=== PATIENT | male | born 2000 | race Caucasian/White ===

== ENCOUNTER 2025-08-11 22:22 | Emergency (ER) | payer OTHER, SELFPAY ==
--- OUTSIDE RECORDS SUMMARY | 2022-09-03 10:00 | XMS_ITS | Continuity of Care Document ---
Author Organization [facility] Address [address] [place] [address] Phone Care Team Providers Care Associate Programmer Name Role Phone Unavailable Unavailable Unavailable Allergies, Adverse Reactions, Alerts Substance Reaction Status Criticality No Known Allergies Active No Inform ation Medications Medication Instructions Dosage Effective Dates (start - stop) Status Comments Adderall XR 10 mg capsule,extended release take 1 capsule by oral route every day in the morning upon awakening as needed for need for attention 10 MG - Active Procedures Procedure Date Depression Negative Screen SBIRT Collect venous blood, venipuncture Aug- Metabolic panel, comprehensive CBC (INCLUDES DIFF/PLT) TSH Urinalysis, non-automated, w/o scope Aug DRUG TEST PRSMV DIR OPT OBS OFFICE O/P NEW, MODERATE LEVEL MDM 45-49 MIN Results Test Name Date and Time Measure Units Reference Range Abnormal Flag Status Comments Panel Description: POC Labs Final Drug Screen 16:01:27 A drug screen was performed today. The patient tested negative for PCP, BUP, METHADONE, MOR, MDMA, EDDP, OLGA LIDIA, THC, BENZO, OXY, AMP, METH AMP, TCA, EMILEE. negative Final Performed by: Rasheed Davies Panel Description: POC Labs Final Urinalysis, Dip Without Micro 16:00:25 Color: light yellow. Glucose: negative. Bilirubin: negative. Ketones: negative. Specific [place]: 1.015. Blood: negative. pH: 7.0. Protein: negative. Urobilinog en: normal. Nitrite: negative. Leukocytes : negative. negative Final Performed by: Rasheed Davies Panel Description: COMPREHENSIVE METABOL IC PANEL PendingIncom plete GLUCOSE 06:31:00 PendingIncompl ete Performed by:[facility] ([place])[address] [place] [address] UREA NITROGEN (BUN) 06:31:00 PendingIncompl ete Performed by:[employer] (UT)[address]128 [place] [address] CREATININE 06:31:00 PendingIncompl ete Performed by:[facility] (UT)59693 [place] [address] EGFR 06:31:00 PendingIncompl ete Performed by:[facility] (UT)30378 [place] [address] BUN/CREATININ E RATIO 06:31:00 PendingIncompl ete Performed by:[facility] (UT)44793 [place] [address] SODIUM 06:31:00 PendingIncompl ete Performed by:[facility] (UT)[address]159 [place] [address] POTASSIUM 06:31:00 PendingIncompl ete Performed by:[facility] (UT)41655 [place] [address] CHLORIDE 06:31:00 PendingIncompl ete Performed by:[employer] (UT)[address]10 [place] [address] CARBON DIOXIDE 06:31:00 PendingIncompl ete Performed by:[facility] (UT)[address]113 [place] [address] CALCIUM 06:31:00 PendingIncompl ete Performed by:[facility] (UT)78403 [place] [address] PROTEIN, TOTAL 06:31:00 PendingIncompl ete Performed by:[facility] (UT)[address]14 [place] [address] ALBUMIN 06:31:00 PendingIncompl ete Performed by:[facility] (UT)29640 [place] [address] GLOBULIN 06:31:00 PendingIncompl ete Performed by:[facility] (UT)36608 [place] [address] ALBUMIN/GLOBU BALJEET RATIO 06:31:00 PendingIncompl ete Performed by:[facility] (UT)[address]84 [place] [address] BILIRUBIN, TOTAL 06:31:00 PendingIncompl ete Performed by:[facility] (UT)48541 [place] [address] ALKALINE PHOSPHATASE 06:31:00 PendingIncompl ete Performed by:[facility] (UT)[address]14 [place] [address] AST 06:31:00 PendingIncompl ete Performed by:[facility] (UT)03787 [place] [address] ALT 06:31:00 PendingIncompl ete Performed by:[facility] (UT)[address]72 [place] [address] Panel Description: COMPREHENSIVE METABOLIC PANEL Final GLUCOSE 09:42:00 81 mg/dL 65-99 N Final Fasting reference interval Performed by:[employer] (UT)[address]32 [place] [address] UREA NITROGEN (BUN) 09:42:00 17 mg/dL 7-25 N Final Performed by:[facility] (UT)83980 [place] [address] CREATININE 09:42:00 1.38 mg/dL 0.60-1.24 H Final Performed by:[facility] (UT) [place] [address] EGFR 09:42:00 73 mL/min /1.73m 2 > OR = 60 N Final The eGFR is based on the CKD-EPI 2020 equation. To calculate the new eGFR from a previous Creatinine or Cystatin Cresult, go to https://www .kidney.org /profession als/kdoqi/g fr%5Fcalcul atorPerform ed by:[facility] (UT)[address]459 [place] [address] BUN/CREATININ E RATIO 09:42:00 12 (calc) 6-22 N Final Performed by:[facility] (UT)43433 [place] [address] SODIUM 09:42:00 139 mmol/L 135-146 N Final Performed by:Spock[facility] (UT)32811 [place] [address] POTASSIUM 09:42:00 4.5 mmol/L 3.5-5.3 N Final Performed by:[facility] (UT)94974 [place] [address] CHLORIDE 09:42:00 103 mmol/L 98-110 N Final Performed by:[facility] (UT)27131 [place] [address] CARBON DIOXIDE 09:42:00 28 mmol/L 18-30 N Final Performed by:Sp[facility] (UT)69427 [place] [address] CALCIUM 09:42:00 9.7 mg/dL 8.6-10.3 N Final Performed by:[facility] (UT)[address] [place] [address] PROTEIN, TOTAL 09:42:00 7.2 g/dL 6.1-8.1 N Final Performed by:[employer] (UT)[address] [place] [address] ALBUMIN 09:42:00 4.7 g/dL 3.6-5.1 N Final Performed by:[employer] [facility] (UT)[address] [place] [address] GLOBULIN 09:42:00 2.5 g/dL (calc) 1.9-3.7 N Final Performed by:[employer] [facility] (UT)[address] [place] [address] ALBUMIN/GLOBU BALJEET RATIO 09:42:00 1.9 (calc) 1.0-2.5 N Final Performed by:[employer] [employer] (UT)[address] [place] [address] BILIRUBIN, TOTAL 09:42:00 1.8 mg/dL 0.2-1.2 H Final Performed by:[employer] [facility] (UT)[address] [place] [address] ALKALINE PHOSPHATASE 09:42:00 65 U/L 36-130 N Final Performed by:[facility] (UT)[address] [place] [address] AST 09:42:00 17 U/L 10-40 N Final Performed by:[facility] (UT)[address] [place] [address] ALT 09:42:00 13 U/L 9-46 N Final Performed by:[employer] [facility] (UT)[address] [place] [address] Panel Description: COMPREHENSIVE METABOLIC PANEL Final GLUCOSE 12:59:00 81 mg/dL 65-99 N Final Fasting reference interval Performed by:[facility] (UT)28815 [place] [address] UREA NITROGEN (BUN) 12:59:00 17 mg/dL 7-25 N Final Performed by:[employer] [employer] [place] (UT)[address] [place], [place] [address] [address] CREATININE 12:59:00 1.38 mg/dL 0.60-1.24 H Final Performed by:Spock[facility] (UT)[address] [place], [place] [address] [address] EGFR 12:59:00 73 mL/min /1.73m 2 > OR = 60 N Final The eGFR is based on the CKD-EPI 2020 equation. To calculate the new eGFR from a previous Creatinine or Cystatin Cresult, go to https://www .kidney.org /profession als/kdoqi/g fr%5Fcalcul atorPerform ed by:[facility] (UT)59625[facility] [place] [address] BUN/CREATININ E RATIO 12:59:00 12 (calc) 6-22 N Final Performed by:Spock[facility] (UT) [place] [address] SODIUM 12:59:00 139 mmol/L 135-146 N Final Performed by:SpockAnthony (UT)44640 [place] [address] POTASSIUM 12:59:00 4.5 mmol/L 3.5-5.3 N Final Performed by:[facility] (UT) [place] [address] CHLORIDE 12:59:00 103 mmol/L 98-110 N Final Performed by:SpockAnthony (UT)42675 [facility] [place] [address] CARBON DIOXIDE 12:59:00 28 mmol/L 18-30 N Final Performed by:SpockAnthony (UT)[address] [place] [address] CALCIUM 12:59:00 9.7 mg/dL 8.6-10.3 N Final Performed by:[employer] [facility] (UT)98[address] [place] [address] PROTEIN, TOTAL 12:59:00 7.2 g/dL 6.1-8.1 N Final Performed by:[employer] [facility] (UT)[address] [place], [place] [address] [address] ALBUMIN 12:59:00 4.7 g/dL 3.6-5.1 N Final Performed by:[employer] [facility] (UT)[address] [place] [address] GLOBULIN 12:59:00 2.5 g/dL (calc) 1.9-3.7 N Final Performed by:[employer] (UT)[address] [place] [address] ALBUMIN/GLOBU BALJEET RATIO 12:59:00 1.9 (calc) 1.0-2.5 N Final Performed by:[employer] [facility] ([place]) [place] [address] BILIRUBIN, TOTAL 12:59:00 1.8 mg/dL 0.2-1.2 H Final Performed by:[employer] [facility] (UT)[address] [place] [address] ALKALINE PHOSPHATASE 12:59:00 65 U/L 36-130 N Final Performed by:[facility] (UT)[address] [place] [address] AST 12:59:00 17 U/L 10-40 N Final Performed by:[employer] [facility] (UT)[address] [place] [address] ALT 12:59:00 13 U/L 9-46 N Final Performed by:[facility] (UT)[address] [place] [address] Panel Description: CBC (INCLUDES DIFF/PLT) Bonnie l WHITE BLOOD CELL COUNT 06:31:00 6.4 Thousa nd/uL 3.8-10.8 N Final Performed by:[employer] [facility] (UT)[address] [place] [address] RED BLOOD CELL COUNT 06:31:00 5.17 Millio n/uL 4.33-5.82 N Final Performed by:[employer] [facility] (UT)[address] [place] [address] HEMOGLOBIN 06:31:00 16.3 g/dL 13.7-17.7 N Final Performed by:[employer] (UT)[address] [place] [address] HEMATOCRIT 06:31:00 46.8 % 41.5-53.8 N Final Performed by:[employer] [facility] (UT)[address] [place], [place] [address] MCV 06:31:00 90.5 fL 80.0-100.0 N Final Performed by:[employer] [facility] ([place])[address] [place], [place] [address] MCH 06:31:00 31.5 pg 27.0-33.0 N Final Performed by:[facility] ([place])[address] [place], [place] [address] MCHC 06:31:00 34.8 g/dL 32.0-36.0 N Final Performed by:[facility] ([place])[address] [place] [address] RDW 06:31:00 13.1 % 11.0-15.0 N Final Performed by:[facility] (UT)[address] [place] [address] PLATELET COUNT 06:31:00 323 Thousa nd/uL 140-400 N Final Performed by:SpockAnthony (UT)24139 [place] [address] MPV 06:31:00 9.4 fL 7.5-12.5 N Final Performed by:[employer] [facility] (UT)79214 [place] [address] ABSOLUTE NEUTROPHILS 06:31:00 3226 cells/ uL 8190-3303 N Final Performed by:[facility] (UT)[address] [place], [place] [address] [address] ABSOLUTE BAND NEUTROPHILS 06:31:00 DNR cells/ uL 0-750 N Final Performed by:[employer] [facility] (UT)[address] [place], [place] [address] [address] ABSOLUTE METAMYELOCYTE S 06:31:00 DNR cells/ uL 0 N Final Performed by:[employer] [facility] (UT)[address] [place], [place] [address] [address] ABSOLUTE MYELOCYTES 06:31:00 DNR cells/ uL 0 N Final Performed by:[facility] (UT)[address] [place], [place] [address] [address] ABSOLUTE PROMYELOCYTES 06:31:00 DNR cells/ uL 0 N Final Performed by:[facility] (UT)[address] [place], [place] [address] [address] ABSOLUTE LYMPHOCYTES 06:31:00 2496 cells/ uL 850-3900 N Final Performed by:[facility] (UT)[address] [place], [place] [address] [address] ABSOLUTE MONOCYTES 06:31:00 454 cells/ uL 200-950 N Final Performed by:[facility] (UT)[address] [place], [place] [address] [address] ABSOLUTE EOSINOPHILS 06:31:00 173 cells/ uL 15-500 N Final Performed by:[facility] (UT)[address] [place] [address] [place] [address] ABSOLUTE BASOPHILS 06:31:00 51 cells/ uL 0-200 N Final Performed by:[employer] [facility] (UT)09781 [place] [address] ABSOLUTE BLASTS 06:31:00 DNR cells/ uL 0 N Final Performed by:SpockAnthony (UT)92326 [place] [address] ABSOLUTE NUCLEATED RBC 06:31:00 DNR cells/ uL 0 N Final Performed by:[facility] (UT)[address] [place], [place] [address], [place] [address] NEUTROPHILS 06:31:00 50.4 % N Final Performed by:[facility] (UT)86646[facility] [place] [address] BAND NEUTROPHILS 06:31:00 DNR % N Final Performed by:[facility] ([place])86959[facility] [place] [address] METAMYELOCYTE S 06:31:00 DNR % N Final Performed by:[facility] (UT)77066[facility] [place] [address] MYELOCYTES 06:31:00 DNR % N Final Performed by:Sp[facility] (UT)58761[facility] [place] [address] PROMYELOCYTES 06:31:00 DNR % N Final Performed by:[facility] (UT)37762[facility] [place] [address] LYMPHOCYTES 06:31:00 39.0 % N Final Performed by:[facility] ([place])92953[facility] [place] [address] REACTIVE LYMPHOCYTES 06:31:00 DNR % 0-10 N Final Performed by:SpockAnthony (UT)[address]005 [place] [address] MONOCYTES 06:31:00 7.1 % N Final Performed by:[employer] (UT)[address]87 [place] [address] EOSINOPHILS 06:31:00 2.7 % N Final Performed by:[employer] [facility] (UT)[address]703 [place] [address] BASOPHILS 06:31:00 0.8 % N Final Performed by:[employer] [facility] ([place])[facility] [place] [address] BLASTS 06:31:00 DNR % N Final Performed by:[employer] [facility] (UT)[address] [place], [place] [address]ner [place] [address] NUCLEATED RBC 06:31:00 DNR /100 WBC 0 N Final Performed by:[employer] [facility] ([place])[facility] [place] [address] COMMENT(S) 06:31:00 DNR N Final Performed by:[employer] [facility] (UT)[address] [place] [address] [place] [address] Panel Description: CBC (INCLUDES DIFF/PLT) Bonnie l WHITE BLOOD CELL COUNT 09:42:00 6.4 Thousa nd/uL 3.8-10.8 N Final Performed by:[employer] [facility] ([place])[address] [place], [place] [address]v[place] [address] RED BLOOD CELL COUNT 09:42:00 5.17 Millio n/uL 4.33-5.82 N Final Performed by:[employer] [facility] (UT)[address] [place], [place] [address]v[place] [address] HEMOGLOBIN 09:42:00 16.3 g/dL 13.7-17.7 N Final Performed by:[facility] ([place])[address] [place], [place] [address]v[place] [address] HEMATOCRIT 09:42:00 46.8 % 41.5-53.8 N Final Performed by:[facility] (UT)[address]36 [place] [address] MCV 09:42:00 90.5 fL 80.0-100.0 N Final Performed by:[employer] [facility] (UT) [place] [address] MCH 09:42:00 31.5 pg 27.0-33.0 N Final Performed by:[facility] [facility] (UT)[address]244 [place] [address] MCHC 09:42:00 34.8 g/dL 32.0-36.0 N Final Performed by:[facility] [facility] (UT)[address]62 [place] [address] RDW 09:42:00 13.1 % 11.0-15.0 N Final Performed by:[facility] [facility] (UT)[address]24 [place] [address] PLATELET COUNT 09:42:00 323 Thous[address] nd/uL 140-400 N Final Performed by:[employer] [facility] (UT)[address]94 [place] [address] MPV 09:42:00 9.4 fL 7.5-12.5 N Final Performed by:[employer] [facility] (UT)[address]27 [place] [address] ABSOLUTE NEUTROPHILS 09:42:00 3226 cells/ uL 9481-7173 N Final Performed by:[employer] [facility] (UT)220[address] [place] [address] ABSOLUTE BAND NEUTROPHILS 09:42:00 DNR cells/ uL 0-750 N Final Performed by:[employer] [facility] (UT)01605[facility] [place] [address] ABSOLUTE METAMYELOCYTE S 09:42:00 DNR cells/ uL 0 N Final Performed by:[employer] [facility] (UT)[address]118 [place] [address] ABSOLUTE MYELOCYTES 09:42:00 DNR cells/ uL 0 N Final Performed by:[facility] [facility] (UT)201[address]vicky [place] [address] ABSOLUTE PROMYELOCYTES 09:42:00 DNR cells/ uL 0 N Final Performed by:[employer] [facility] (UT)[address]91 [place] [address] ABSOLUTE LYMPHOCYTES 09:42:00 2496 cells/ uL 850-3900 N Final Performed by:[employer] [facility] (UT)[address] [place], [place] [address], [place] [address] ABSOLUTE MONOCYTES 09:42:00 454 cells/ uL 200-950 N Final Performed by:[employer] [facility] (UT)[address] [place], [place] [address] [address] ABSOLUTE EOSINOPHILS 09:42:00 173 cells/ uL 15-500 N Final Performed by:[facility] [facility] (UT)[address] [place], [place] [address]ner [place] [address] ABSOLUTE BASOPHILS 09:42:00 51 cells/ uL 0-200 N Final Performed by:[employer] [facility] ([place])[address] [place], [place] [address]vicky [place] [address] ABSOLUTE BLASTS 09:42:00 DNR cells/ uL 0 N Final Performed by:[employer] [facility] (UT)85858[facility] [place] [address] ABSOLUTE NUCLEATED RBC 09:42:00 DNR cells/ uL 0 N Final Performed by:[facility] ([place])[address] [place], [place] [address]v[place] [address] NEUTROPHILS 09:42:00 50.4 % N Final Performed by:[facility] [facility] (UT)26202[facility] [place] [address] BAND NEUTROPHILS 09:42:00 DNR % N Final Performed by:[employer] [facility] ([place])[facility] [place] [address] METAMYELOCYTE S 09:42:00 DNR % N Final Performed by:[employer] [facility] (UT)84667 [place] [address] MYELOCYTES 09:42:00 DNR % N Final Performed by:[employer] [facility] (UT) [place] [address] PROMYELOCYTES 09:42:00 DNR % N Final Performed by:[facility] (UT)[address] [place] [address] [place] [address] LYMPHOCYTES 09:42:00 39.0 % N Final Performed by:[facility] [employer] [facility] (UT)20192 [place] [address] REACTIVE LYMPHOCYTES 09:42:00 DNR % 0-10 N Final Performed by:[facility] (UT)[address]204 [place] [address] MONOCYTES 09:42:00 7.1 % N Final Performed by:[facility] [employer] (UT)[address]18 [place] [address] EOSINOPHILS 09:42:00 2.7 % N Final Performed by:[facility] [facility] (UT)[address]39 [place] [address] BASOPHILS 09:42:00 0.8 % N Final Performed by:[facility] ([place])97791[facility] [place] [address] BLASTS 09:42:00 DNR % N Final Performed by:[facility] (UT)54271 [place] [address] NUCLEATED RBC 09:42:00 DNR /100 WBC 0 N Final Performed by:[facility] (UT)[address]471 [place] [address] COMMENT(S) Oct-28-2022 09:42:00 DNR N Final Performed by:[facility] [employer] ([place])[address] [place], [place] [address] [address] Panel Description: CBC (INCLUDES DIFF/PLT) Bonnie l WHITE BLOOD CELL COUNT 12:59:00 6.4 Thousa nd/uL 3.8-10.8 N Final Performed by:[facility] [facility] (UT)[address] [place], [place] [address] [address] RED BLOOD CELL COUNT 12:59:00 5.17 Millio n/uL 4.33-5.82 N Final Performed by:[facility] [employer] (UT)[address] [place], [place] [address] [address] HEMOGLOBIN 12:59:00 16.3 g/dL 13.7-17.7 N Final Performed by:[facility] [employer] [facility] ([place])[address] [place], [place] [address] [address] HEMATOCRIT 12:59:00 46.8 % 41.5-53.8 N Final Performed by:[facility] [facility] (UT)[address] [place], [place] [address] [address] MCV 12:59:00 90.5 fL 80.0-100.0 N Final Performed by:[facility] ([place])[address] [place], [place] [address] [address] MCH 12:59:00 31.5 pg 27.0-33.0 N Final Performed by:[facility] ([place])[address] [place], [place] [address] [address] MCHC 12:59:00 34.8 g/dL 32.0-36.0 N Final Performed by:[facility] ([place])[address] [place], [place] [address] [address] RDW 12:59:00 13.1 % 11.0-15.0 N Final Performed by:[facility] ([place])[address] [place], [place] [address] [address] PLATELET COUNT 12:59:00 323 Thousa nd/uL 140-400 N Final Performed by:[facility] (UT)[address]374 [place] [address] MPV 12:59:00 9.4 fL 7.5-12.5 N Final Performed by:SpockAnthony (UT)[address]781 [place] [address] ABSOLUTE NEUTROPHILS 12:59:00 3226 cells/ uL 7141-0866 N Final Performed by:Sp[facility] (UT)26849[facility] [place] [address] ABSOLUTE BAND NEUTROPHILS 12:59:00 DNR cells/ uL 0-750 N Final Performed by:[facility] ([place])[address] [place], [place] [address]v[place] [address] ABSOLUTE METAMYELOCYTE S 12:59:00 DNR cells/ uL 0 N Final Performed by:[facility] (UT)[address] [place] [address] [place] [address] ABSOLUTE MYELOCYTES 12:59:00 DNR cells/ uL 0 N Final Performed by:[facility] (UT)79735[facility] [place] [address] ABSOLUTE PROMYELOCYTES 12:59:00 DNR cells/ uL 0 N Final Performed by:[facility] (UT)80460[facility] [place] [address] ABSOLUTE LYMPHOCYTES 12:59:00 2496 cells/ uL 850-3900 N Final Performed by:SpockAnthony (UT)38897[facility] [place] [address] ABSOLUTE MONOCYTES 12:59:00 454 cells/ uL 200-950 N Final Performed by:SpockAnthony (UT)13800[facility] [place] [address] ABSOLUTE EOSINOPHILS 12:59:00 173 cells/ uL 15-500 N Final Performed by:SpockAnthony (UT)[address] [place], [place] [address] [address] ABSOLUTE BASOPHILS 12:59:00 51 cells/ uL 0-200 N Final Performed by:[employer] [employer] [facility] (UT)[address] [place], [place] [address] [address] ABSOLUTE BLASTS 12:59:00 DNR cells/ uL 0 N Final Performed by:[employer] [facility] (UT)[address] [place], [place] [address] [address] ABSOLUTE NUCLEATED RBC 12:59:00 DNR cells/ uL 0 N Final Performed by:[employer] [place] ([place])[id number] [place], [place] [address] [address] NEUTROPHILS 12:59:00 50.4 % N Final Performed by:[employer] [place] ([place])[address] [place], [place] [address] [address] BAND NEUTROPHILS 12:59:00 DNR % N Final Performed by:[employer] [place] ([place])[address] [place], [place] [address] [address] METAMYELOCYTE S 12:59:00 DNR % N Final Performed by:[employer] [place] ([place])[address] [place], [place] [address] [address] MYELOCYTES 12:59:00 DNR % N Final Performed by:[employer] [place] ([place])[address] [place], [place] [address] [address] PROMYELOCYTES 12:59:00 DNR % N Final Performed by:[employer] ([place])[address] [place], [place] [address] [address] LYMPHOCYTES 12:59:00 39.0 % N Final Performed by:[employer] [place] ([place])[address] [place], [place] [address], [place] [address] REACTIVE LYMPHOCYTES 12:59:00 DNR % 0-10 N Final Performed by:[employer] [place] ([place])[address] [place] [address] MONOCYTES 12:59:00 7.1 % N Final Performed by:[employer] Grisel Sarmiento ([place])[address] [place] [address] EOSINOPHILS 12:59:00 2.7 % N Final Performed by:[employer] Grisel Sarmiento ([place])[address] [place] [address] BASOPHILS 12:59:00 0.8 % N Final Performed by:[employer] [place] ([place])[address] [place] [address] BLASTS 12:59:00 DNR % N Final Performed by:[facility] [employer] ([place])[facility] Karolina David [id number] NUCLEATED RBC 12:59:00 DNR /100 WBC 0 N Final Performed by:Yi Chang Ou S[employer] Grisel Sarmiento ([place])[facility] [place] [address] COMMENT(S) 12:59:00 DNR N Final Performed by:[employer] [place] ([place])[facility] [place] [address] Panel Description: Thyrotrop in [Units/volume] in Serum or Plasma PendingIncom plete TSH 06:31:00 PendingIncompl ete Performed by:[employer] [place] [place] [address] Panel Description: Thyrotrop in [Units/volume] in Serum or Plasma PendingIncom plete TSH 09:42:00 PendingIncompl ete Performed by:[employer] [place])[facility] [place] [address] Panel Description: Thyrotrop in [Units/volume] in Serum or Plasma Final TSH 12:59:00 1.00 mIU/L 0.40-4.50 N Final Performed by:[employer] [place] ([place])[id number] [place] [address] Advance Directives Directive Yes / No Effective Date File Name No Information Encounters Encounter Description Practice Location Reason(s) For Visit Diagnoses Date Provider Providers Copied on Encounter OFFICE O/P NEW, MODERATE LEVEL MDM 45-49 MIN Margaret Rinconsyeda , [address], [place], [id number] , [place] tel:[phone] Margaret Rinconsyeda Peoples New Patient (chief complaint) IZ (chief complaint) ADD (chief complaint) Encounter for screening for other disorderEncounter for screening, unspecifiedAdult attention deficit disorderOverweigh tEncntr screen for dis of the bld/bld-form org/immun mechnsm No Information Family History Family Member Type Diagnosis Age At Onset Brother Problem ADD/ADHD Problem No family history of Thyroid disorder Problem No family history of Hyperte nsion Problem No family history of Mental disorder Problem No family history of Depress ion Payers Payer name Insurance type Covered alliance party ID Authoriza tion(s) Self Pay 09 Social History Type Description Quantity Date Captured Comments Alcohol Use Details Unknown Caffeine Use Details Unknown Tobacco Use Status Current non-smoker Smoking Status Never smoker Non-Smoking Tobacco Use Details : No Details Available : No Details Available Sex Male Sexual Orientation Heterosexual (or Straight) Gender Identity Cis-Male Vital Signs Date / Time: Height Weight BMI Pulse Rate Blood Pressure Temperature Respiratory Rate Body Surface Area Head Circumference Head Circ. Percentile Wt./Femi. Percentile BMI percentile Pulse Ox Inhaled Ox 2:42 PM 68.25 in 92.351 kg (203.60 lbs) 30.7 3 kg/m eter (2) 72 /min 114/80 mm[Hg] 97.30 F 16 /min Chief Complaint And Reason For Visit From encounter dated 09/03/2022 15:00'. New Patient (chief complaint). Description: The patient states the symptoms are acute. Chief complaint today: ADHD Rx and blood work, studying psych at , had been in [employer] [facility] [employer]. was [place] 9 m. Chronic medical problems/diagnoses: ADHDLast saw a medical providerand where: Earlier this month at the [facility], [facility] had long waits for appts.Prior Surgeries: none, no hospwould like lab work, lifts weights and runs, runs 1-5 m. Current Meds: noneSBIRT:Smoker: noneTetanus status: UTDFlu vaccine: due, agreedCovid vaccine: due for omicon booster., declinedLast Colonoscopy: N/a IZ (chief complaint). Description: Due for flu shot and omicron booster. Agreed to flu shot. Booster declined. ADD (chief complaint). Description: The patient states the symptoms are chronic. dx middle school, high school , given 20 mg. rx family doc. family went with medication. went off when in . restarted with online psych, now unavail, for 5 mg last year (studying psych)feels 20 was high, 5 a bit, off now for 6 monthsrestlessinability to focus. starts projects but difficult to finish before next started. doesn't hand things in. not irritable. high B average. about the same this year off medslives alone, has good friends, family, partner female. supportalcohol not used. saw horrors of substance use. moral question. no other substancesdenies other mental health issuesaverage sleep 9 hours Reason For Referral Reason For Referral No Information Plan Of Treatment Date Type Action Status Goal Well Visit. Due on due Goal Depression screening. Due on due Goal Unhealthy drug use screening . Due on due Goal Td vaccine. Due on due Goal Hepatitis C screening. Due o n due Goal Tdap. Due on due Goal Influenza vaccine. Due on Oc due Goal HPV (). Due on 2 due Goal Diet and Activity Counseling . Due on due Goal Lifestyle education regardin g diet completed History Of Present Illness Encounter Date Complaint History Of Prese nt Illness ADD The patient stat es the symptoms are chronic. dx middle school, high school , given 20 mg. rx family doc. family went with medication. went off when in . restarted with online psych, now unavail, for 5 mg last year (studying psych)feels 20 was high, 5 a bit, off now for 6 monthsrestlessinability to focus. starts projects but difficult to finish before next started. doesn't hand things in. not irritable. high B average. about the same this year off medslives alone, has good friends, family, partner female. supportalcohol not used. saw horrors of substance use. moral question. no other substancesdenies other mental health issuesaverage sleep 9 hours New Patient The patient stat es the symptoms are acute. Chief complaint today: ADHD Rx and blood work, studying psych at , had been in [facility], [facility] [employer]. was [place] 9 m. Chronic medical problems/diagnoses: ADHDLast saw a medical provider and where: Earlier this month at the [facility], [facility] had long waits for appts.Prior Surgeries: none, no hospwould like lab work, lifts weights and runs, runs 1-5 m. Current Meds: noneSBIRT:Smoker: noneTetanus status: UTDFlu vaccine: due, agreedCovid vaccine: due for omicon booster., declinedLast Colonoscopy: N/a IZ Due for flu shot and omicron booster. Agreed to flu shot. Booster declined. Functional Status Date Functional Assessmen t No Information Instructions Date Instruction Additional Infor mation likely primarily r/t mm bulk by appearance. Related to Overweight onset childhoodantic ipates intermittent use, x2-3/wk for acute needswill rx 10 mg #15 for a month and f/u in a monthdiscussed parameters of prescriptionwould rather not daily medso less approp for stratterato fill out forms todayUDS TSH, CBC, CMP for overweight Related to Adult attention deficit disorder Lifestyle education regarding di et Prescribed activity/exercise edu cation Assessments Type Assessment Date assessment Encounter for screening for othe r disorder assessment Encounter for screening, unspeci fied assessment Adult attention deficit disorder assessment Overweight assessment Encntr screen for dis of the bld /bld-form org/immun mechnsm Mental Status Date Cognitive Assessment Orientation - Yeso ed to time, place, person, situation. Patient Care Teams Name Effective Dates (start - stop) Status Members No Information
--- NOTE | ~2025-08-11 | CT_ITS ---
CT HEAD NON-CONTRAST Clinical History: headache persistent despite meds Comparison: None Technique: Unenhanced axial images skull base to vertex Coronal, sagittal reformats CT images acquired with automatic exposure control for dose reduction DLP: 681 mGy-cm Findings: Sulci, ventricles: Unremarkable. No intracerebral hemorrhage. No evidence acute territorial infarct. No mass effect, midline shift. Bony calvarium intact. Visualized paranasal sinuses: Clear. Mastoid air cells: Clear. IMPRESSION: 1. No acute intracranial findings. Reviewed, dictated and finalized at location R.
[2025-08-11 22:25] VITALS: BP 142/79; PULSE 77; RESP 18; TEMP 36.4; O2SAT 98
[2025-08-12 00:43] LABS: Hematocrit 44.7 % (42.0-52.0); Hemoglobin 15.4 g/dL (14.0-18.0); Immature Granulocyte Percent A 0.3 % (0-0.5); Lymphocytes Absolute Auto 1.04 K/mm3 (0.9-3.2); Mean Corpuscular HGB Conc 34.5 g/dl (32-36); Mean Corpuscular Hemoglobin 31.4 pg (26-34); Mean Corpuscular Volume 91.0 fl (80-100); Nucleated Red Blood Cells Absolute Auto 0.000 K/mm3 (0.0-0.012); Nucleated Red Blood Cells Perc 0.0 % (0.0-0.2); Platelet Count Result 280 k/mm3 (150-375); Red Blood Count 4.91 M/mm3 (4.6-6.20); White Blood Count 12.9 K/mm3 (4.5-10.0)
[2025-08-12 00:56] LABS: Add Urine Microscopic? NO; Appearance Urine Clear (Clear); Glucose Urine UA Negative (Negative); Leukocyte Esterase Ur Negative LEU/UL (Negative); Nitrate Urine Negative (Negative); Specific Grav Ur 1.015 (1.001-1.035)
[2025-08-12 01:14] LABS: Alanine Aminotransferase 20 U/L (6-50); Albumin Level 4.9 g/dL (3.5-5.1); Alkaline Phosphatase 61 U/L (38-126); Anion Gap 9 mmol/L (4-12); Aspartate Amino Transferase 28 U/L (17-59); Bilirubin,Total 2.2 mg/dL (0.2-1.3); Blood Urea Nitrogen 14 mg/dL (9-20); Calcium 9.8 mg/dL (8.4-10.2); Carbon Dioxide 26 mmol/L (22-30); Chloride 105 mmol/L (98-107); Estimated CRCL calculation 86 ml/min; Estimated Glomerular Filt Rate > 60; Glucose 157 mg/dL (65-110); Lipase 89 U/L (23-300); Potassium 5.0 mmol/L (3.4-5.0); Sodium 140 mmol/L (137-145); Total Protein 8.5 g/dL (6.3-8.2)
[2025-08-12 01:19] LABS: Influenza A QL RT-PCR Negative (Negative); Influenza B QL RT-PCR Negative (Negative); RSV RNA, RT-PCR Negative (Negative); SARS-CoV-2 RNA PCR Negative (Negative)
[2025-08-12 03:01] VITALS: BP 128/77; PULSE 64; RESP 18; O2SAT 100
--- NOTE | 2025-08-12 03:17 | ED_ITS ---
HPI - Headache General Chief Complaint: Headache Stated Complaint: headache, fever, chills Time Seen by Provider: 08/12/25 03:03 Source: patient and family (Mother) Mode of arrival: ambulatory Limitations: no limitations History of Present Illness HPI Narrative: Patient presents with report a headache with pain behind his eyes. He has had a borderline fever, maximum temperature 100 F. the headache is described as throbbing and frontal. He does not have a primary care physician. He lives with his girlfriend and denies any sick contacts or housemates with similar symptoms. He has intermittently had nausea as well as vomiting but it is been nonbloody. Denies any cough, shortness of breath, chest pain, diabetes mellitus. No history of previous or chronic headache. Has not had diarrhea. Headaches associated with photophobia and phonophobia. Denies any limitations with moving neck. No recent trauma. Not on anticoagulation. Denies any abdominal pain, dysuria, or hematuria. Has been taking Tylenol and ibuprofen. He took 1 tablet of 500 mg Tylenol every 4 hours and for ibuprofen he has been taking a 200 mg tablet every 4 hours. He has been having body aches. Symptoms started Wednesday. Related Data Allergies Allergy/AdvReac Type Severity Reaction Status Date / Time pertussis vaccine,adsorbed Allergy Unknown Unverified 08/10/14 17:20 [facility] Family History Family History Mother No problems noted. Social History Social History Living arrangements: other Additional living arrangements comments: with girlfriend Exam 2 Narrative: GENERAL: Well-appearing, well-nourished, and in no acute distress. HEAD: Normocephalic, atraumatic. EYES: Non injected, non icteric. PERRL. EOMI w/o nystagmus. ENT: Nares clear, no rhinorrhea or epistaxis. Gross auditory acuity intact. NECK: Supple. No meningismus. No limitations in freely moves head with full rotational movement side to side as well as with neck flexion and extension. No rigidity, not held in fixed position. CHEST: Speaking in full sentences. No respiratory distress. HEART: Regular rate and rhythm. . ABDOMEN: Soft, nondistended. EXTREMITIES: Normal range of motion. SKIN: Warm, dry, no rash. NEURO: No focal deficits. Alert and oriented. Answering questions. Following commands. Normal speech without aphasia or dysarthria. PSYCH: Congruent mood and affect. Course Vital Signs Vital signs: Vital Signs Temperature 97.5 F L 08/11/25 22:25 Pulse Rate 77 08/11/25 22:25 Respiratory Rate 18 08/11/25 22:25 Blood Pressure 142/79 H 08/11/25 22:25 Pulse Oximetry 98 08/11/25 22:25 Oxygen Delivery Room Air 08/11/25 22:25 Temperature 98.1 F 08/12/25 08:43 Pulse Rate 66 08/12/25 08:43 Respiratory Rate 17 08/12/25 08:43 Blood Pressure 112/65 08/12/25 08:43 Pulse Oximetry 100 08/12/25 08:43 Oxygen Delivery Room Air 08/11/25 22:25 MDM - Headache MDM Narrative Medical decision making narrative: Patient presents with report of headache described as throbbing and frontal with pain behind his eyes. This is associated with elevated temperature and body aches as well as nausea and vomiting. Headache has photophobia and phonophobia. In the emergency department he is afebrile with vital signs notable for mild hypertension, resolved on repeat assessment without interval intervention. He has a mild leukocytosis. Urinalysis unremarkable. Viral swab negative. He has hyperglycemia without anion gap acidosis. He has hyperbilirubinemia. After obtaining the patient's history and performing a physical exam, the headache is most likely due to benign etiology. The neurological examination is non-focal, there are no high-risk features on history, vital signs are stable, and the patient is non-toxic appearing. The Ddx for the patient's headache is tension headache, migraine, or other headache of non-emergent etiology. Unlikely SAH: headache is not described as thunderclap Unlikely subdural/epidural hematoma: no history of trauma, no anticoagulation Unlikely meningitis: afebrile (though borderline at home by report), no meningismus, mild photophobia Unlikely temporal arteritis: pt <60 years old. No pain in temporal area Unlikely acute angle glaucoma: PERRL Unlikely carbon monoxide poisoning: no other house members with similar symptoms Will defer imaging for now. Hyperbilirubinemia, indirect predominant. Ddx indirect hyperbilirubinemia Over production of bilirubin (hemolytic anemia), reduced uptake (cirrhosis or congestive hepatopathy), impaired conjugation, biliary obstruction, hereditary disease (Gilbert syndrome, Hailey-Itz syndrome, Crigler-Sheldon syndrome), medication side effect (allopurinol, anabolic steroids, antibiotics, antimalarials, etc.) CPK normal. The patient's headache was treated symptomatically with IV fluids, ketorolac, benadryl, PO acetaminophen, compazine; magnesium. Upon re-evaluation at 4:35 a.m., he reports that he continues to have give very bad headache. Will proceed with CT imaging and administer steroid as well as opiate. When patient is reassessed, his headache is improving, initially 9/10 in severity and now 6/10 severity. Upon re-evaluation it is less than 4/10 severity. Discussed the uncertainty of his diagnosis and that it is likely a viral syndrome although negative viral panel and discuss that etiology such as meningitis, viral or bacterial could not completely be ruled out without a lumbar puncture however patient is without any nuchal rigidity, altered mentation, fever, etc. Does not have a PCP; provided contact information/referral for 1. Patient was also educated on appropriate dosing of acetaminophen and ibuprofen. He was given strict emergency department return precautions which he and his mother verified understanding. Otherwise stable for DC. Vital signs are normal. Lab Data Attestation: I reviewed the patient's lab results. 08/12/25 00:37 08/12/25 00:37 Labs: Lab Results 08/12/25 08/12/25 Range/Units 00:37 00:44 WBC 12.9 H (4.5-10.0) K/mm3 RBC 4.91 (4.6-6.20) M/mm3 Hgb 15.4 (14.0-18.0) g/dL Hct 44.7 (42.0-52.0) % MCV 91.0 (80-100) fl MCH 31.4 (26-34) pg MCHC 34.5 (32-36) g/dl RDW 11.7 (11.5-14.5) % Plt Count 280 (150-375) k/mm3 MPV 8.4 (7.4-10.4) fl Immature Gran % (Auto) 0.3 (0-0.5) % Neut % (Auto) 87.6 H (45.5-73.1) % Lymph % (Auto) 8.0 L (18.3-44.2) % [place] % (Auto) 3.4 (2.6-8.5) % Eos % (Auto) 0.2 (0-4.4) % Baso % (Auto) 0.5 (0.2-1.2) % Lymph # (Auto) 1.04 (0.9-3.2) K/mm3 [place] # (Auto) 0.4 (0.1-0.6) K/mm3 Eos # (Auto) 0.0 (0-0.3) K/mm3 Baso # (Auto) 0.1 (0.0-0.1) K/mm3 Abs Immat Gran (auto) 0.04 H (0.00-0.031) K/mm3 Absolute Neuts (auto) 11.3 H (1.3-6.7) K/mm3 Absolute Nucleated RBC 0.000 (0.0-0.012) K/mm3 Nucleated RBC % 0.0 (0.0-0.2) % Sodium 140 (137-145) mmol/L Potassium 5.0 (3.4-5.0) mmol/L Chloride 105 (98-107) mmol/L Carbon Dioxide 26 (22-30) mmol/L Anion Gap 9 (4-12) mmol/L BUN 14 (9-20) mg/dL Creatinine 1.30 (0.7-1.3) mg/dL Estim Creat Clear Calc 86 ml/min Estimated GFR > 60 (59 - ) Glucose 157 H (65-110) mg/dL Calcium 9.8 (8.4-10.2) mg/dL Magnesium 2.1 (1.6-2.3) mg/dL Total Bilirubin 2.2 H (0.2-1.3) mg/dL Direct Bilirubin 0.0 (0-0.3) mg/dL Indirect Bilirubin 1.5 H (0-1.1) mg/dL AST 28 (17-59) U/L ALT 20 (6-50) U/L Alkaline Phosphatase 61 (38-126) U/L Total Creatine Kinase 69 (55-170) U/L Total Protein 8.5 H (6.3-8.2) g/dL Albumin 4.9 (3.5-5.1) g/dL Lipase 89 (23-300) U/L Urine Color Yellow (Yellow) Urine Appearance Clear (Clear) Urine pH 5.5 (5.0-9.0) Ur Specific Win[place]red 1.015 (1.001-1.035) Urine Protein Negative (Negative) mg/dL Urine Glucose (UA) Negative (Negative) mg/dL Urine Ketones Negative (Negative) mg/dL Ur Blood (Man) Negative (Negative) Urine Nitrate Negative (Negative) Urine Bilirubin Negative (Negative) Urine Urobilinogen 0.2 (<2.0) mg/dL Leukocyte Esterase Rfl Negative (Negative) CAROLYNN/UL Influenza A (RT-PCR) Negative (Negative) Influenza B (RT-PCR) Negative (Negative) RSV (RT-PCR) Negative (Negative) SARS-CoV-2 RNA (RT-PCR) Negative (Negative) Imaging Data Radiologist's impression: CT head stat rad: No ICH, mass effect, or edema. No evidence of acute cortical stroke. Visualized sinuses and mastoid air cells are clear. Discharge Plan Discharge Clinical Impression: Headache, Myalgia, Leukocytosis, Hyperglycemia, Indirect hyperbilirubinemia Patient Disposition: Home Condition: Stable Instructions: Antibiotic Form, Acute Headache (DC), Viral Syndrome (ED) Additional Instructions: Acetaminophen/Tylenol (maximum 4000 mg per day) is safe to take with NSAIDs (ibuprofen/Motrin) for pain relief. Follow-up with a primary care physician. Because you do not have 1 the name of the doctors listed below. Return to the emergency department any new, worsening, unmanaged symptoms. Rest and maintain your hydration Patient Language: Kenyan Follow-up/Referrals: Andre Booth MD [Physician, Family Practice] UNKNOWN,DOCTOR [Non-Staff] Stand Alone Forms: Work/School Release IP Time of Disposition: 08:35
[2025-08-12 04:09] LABS: Magnesium 2.1 mg/dL (1.6-2.3)
[2025-08-12] MEDS: KETOROLAC 15 MG/ML VIAL (*BKC) IV PUSH (04:14)
[2025-08-12] MEDS: MAGNESIUM SULF 1 GM/D5W 100 ML 1 GM/100 ML BAG IVPB (04:14)
[2025-08-12] MEDS: ONDANSETRON INJ 4 MG/2 ML VIAL IV PUSH (04:14)
[2025-08-12 04:15] LABS: Creatine Kinase 69 U/L (55-170)
[2025-08-12] MEDS: ACETAMINOPHEN 500 MG TABLET 1000 MG PO (04:15)
[2025-08-12] MEDS: PROCHLORPERAZINE EDISYLATE 10 MG/2 ML VIAL 5 MG IV PUSH (04:15)
[2025-08-12 04:29] VITALS: BP 116/84; PULSE 56; RESP 18; O2SAT 98
[2025-08-12] MEDS: MORPHINE SULFATE (*CRX) 4 MG/ML INJ IV PUSH (04:46)
[2025-08-12 06:06] VITALS: BP 116/85; PULSE 69; RESP 18; O2SAT 95
[2025-08-12 08:27] VITALS: BP 111/64; PULSE 67; RESP 14; O2SAT 99
[2025-08-12 08:43] VITALS: BP 112/65; PULSE 66; RESP 17; TEMP 36.7; O2SAT 100
== END 2025-08-12 08:46 | disposition home or self-care (01) ==
PROVIDERS: Emergency Provider Student in an Organized Health Care Education/Training Program
DX: R51.9 Headache, unspecified (principal); M79.10 Myalgia, unspecified site; R73.9 Hyperglycemia, unspecified; E80.6 Other disorders of bilirubin metabolism
CPT/HCPCS: 36415; 70450; 80053; 81003; 82248; 82550; 83690; 83735; 85025; 87637; 96365; 96375; 99284; A9270; J0780; J1200; J1885; J2270; J2405; J3475; J8540